=== PATIENT | male | born 1995 | race Caucasian/White ===

== ENCOUNTER → 2022-02-14 | Outpatient (CLI) | payer OTHER ==
--- NOTE | 2022-02-15 08:01 | RAD ---
CT head without contrast dated 02/15/2022 7:57 AM Comparison: None CLINICAL INDICATION: Severe headache TECHNIQUE: Contiguous axial imaging of the head was performed from skull base to vertex. One or more of the following individualized dose reduction techniques were utilized for this examinat ion: 1. Automated exposure control 2. Adjustment of the mA and/or kV according to patient size 3. Use of iterative reconstruction technique. FINDINGS: Ventricles and sulci are within normal limits for age. No midline shift or mass effect. Brain parench yma is of normal attenuation. No hemorrhage or extra-axial collection. Posterior fossa and brainstem unremarkable. Visualized paranasal sinuses and mastoid air cells are clear. No apparent calvarial abnormality. IMPRESSION: No evidence of acute intracranial abnormality. Electronically signed by: Joshua Noble MD (02/15/2022 7:58 AM) [facility]
== END ==
LOC: CT 17:42
DX: R51.9 Headache, unspecified (principal)
CPT/HCPCS: 70450